=== PATIENT | female | born 1985 | race Caucasian/White ===

== ENCOUNTER 2021-03-25 13:59 | Observation (INO) | payer BC ==
[2021-03-25] MEDS ORDERED: IV RINGERS,LACTATED 1000ML 1,000 ML IV SCH (14:15)
== END 2021-03-25 15:10 | disposition home or self-care (01) ==
LOC: 3 SO LND 13:59
PROVIDERS: ADMIT Obstetrics & Gynecology; ATTEND Obstetrics & Gynecology
DX: O98.53 Other viral diseases complicating the puerperium (principal); U07.1 COVID-19; O36.8130 Decreased fetal movements, third trimester, not applicable or unspecified; Z3A.29 29 weeks gestation of pregnancy
CPT/HCPCS: 59025; G0378; G0379